=== PATIENT | male | born 1940 | race Two or more races ===

== ENCOUNTER 2017-01-22 11:38 | Inpatient (IN) | payer OTHER, BC ==
[~2017-01-22] VITALS: Ht 160 cm; Wt 68.0 kg
--- NOTE | ~2017-01-22 | HP ---
Unit #: [id number] #: [id number] Patient: RASHAAD DUTTA [id number] [address] [place], [place] [address] [id number] I MR#: [id number] NAME: RASHAAD DUTTA ROOM: [facility] Age: 76 Sex: M Admission Date: 01/22/2017 : 1940 Attending Physician: Hillary Brown M.D. Primary Care Physician: [facility]. HISTORY AND PHYSICAL REASON FOR EVALUATION Pancytopenia, please evaluate. HISTORY OF PRESENT ILLNESS 76-year-old gentleman who states for the last two months he gets short winded very easily, went to the family doctor for evaluation and was found to have a hemoglobin of 4.9 sent over here for admission. On questioning he has no fever, chills, no night sweats, no weight loss. The only thing he felt abnormal was easy fatigability. He has no history of hemoptysis, hematemesis, melena, hematuria, hematochezia or blood loss in the past. PAST HISTORY Mainly remarkable for intracranial bleed but that was 20 years ago and they don't have the records. It was at [facility]. Had a history of hypertension but no blood dyscrasias. FAMILY HISTORY Positive for colon cancer. Negative for blood dyscrasias. SOCIAL HISTORY He quit smoking more than two decades ago. Retired steelworker and very occasional alcohol. No new medications. ALLERGIES No known allergies. CHRONIC MEDICATIONS Zestoretic and vitamin D. REVIEW OF SYSTEMS Mainly remarkable for weakness and shortness of breath on exertion, otherwise 8 or 10 systems are within normal limits. PHYSICAL EXAMINATION GENERAL: He appears very comfortable, lying flat in bed, no palpable nodes. LUNGS: Clear. CARDIOVASCULAR: Distant S1 and S2. ABDOMEN: No organomegaly. [employer]: Grossly intact. RECTAL: Not performed. DIAGNOSTIC STUDIES LABORATORY STUDIES: Glucose 108, BUN 22, creatinine 1, sodium 137, Unit #: [id number] #: [id number] Patient: RASHAAD DUTTA potassium 4.5, chloride 105, CO2 26, calcium 8.6, AST 20, ALT 11, alk phos 47, serum iron of 214, TIBC 243, saturation 88, B12 395, creatinine 15.2, ferritin of 355. Hemoglobin 4.9, hematocrit 15, white count 3700, platelets 63,000. Peripheral smear shows atypical very rare white cells, possible dysplastic. Red blood cell are microcytic with some teardrops. Platelets are decreased in number, large in size. No schistocytes seen. 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 PLAN To proceed with packed RBCs, to bring the hemoglobin around 7-8 and proceed with a bone marrow aspirate biopsy flow cytometry, cytogenetics in the morning. Benefits and risks of this approach explained to the patient. He is in full agreement. Dictated by Regina James/ts TD: 01/23/2017 06:28 JOB #: [id number] HISTORY AND PHYSICAL Page 1 of 1 X Manolo Joiner MD X HISTORY AND PHYSICAL
--- NOTE | ~2017-01-22 | HP ---
Unit #: [id number] #: [id number] Patient: RASHAAD DUTTA [id number] [address] [address] [id number] MR#: [id number] NAME: RASHAAD DUTTA ROOM: Age: 76 Sex: M Admission Date: 01/22/2017 : 1940 Attending Physician: Yaw Marion M.D. [facility] HISTORY AND PHYSICAL CHIEF COMPLAINT Abnormal labs. HISTORY OF PRESENT ILLNESS The patient is a 76-year-old male with a past medical history of hypertension and intracranial hemorrhage who presented to the emergency department for evaluation of the above. Patient states that he was seen by his primary care physician for a routine followup. Labs were done. Today, he was told by the primary care physician to come to the emergency department due to abnormal labs. The patient's hemoglobin was reportedly 4.9. The patient states that he has had a one to two-month history of increasing generalized weakness and fatigue. He states that he has had dyspnea on exertion with activities including walking up stairs. He denies any blood in the stool and no black tarry stool. He has never had endoscopy. He denies any change in his weight, no chest pain, no palpitations, no syncope, and no feelings of lightheadedness. Upon arrival in the emergency department, the patient's pulse and blood pressure were 75 and 120/40, respectively. Hemoglobin is 4.9, platelets are 63,000, and white blood cell count 3.7. Rectal exam was Hemoccult negative per ER documentation. He is being admitted to [facility] for evaluation and further treatment. PAST MEDICAL HISTORY 1. Patient denies recent hospitalizations within the past 10 years. 2. Hospitalized at [facility] 20 years ago for intracranial hemorrhage, status post surgery. 3. Hypertension. PAST SURGICAL HISTORY Surgery for intracranial hemorrhage (no records). SOCIAL HISTORY The patient lives with his family. He quit smoking 20 years ago. 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 FAMILY HISTORY Notable for there being no history of colon cancer in the family. There is no history of heart disease that the patient is aware of. ALLERGIES No known allergies. Unit #: [id number] #: [id number] Patient: RASHAAD DUTTA HOME MEDICATIONS 1. Zestoretic 20/25 daily. 2. Vitamin D 50,000 units weekly. REVIEW OF SYSTEMS A complete review of systems is negative except as indicated in the HPI. PHYSICAL EXAMINATION VITAL SIGNS: Temperature is 98.3, pulse 75, respirations 16, blood pressure 120/40, and oxygen saturation is 100% on room air. GENERAL: Patient is a very pleasant male in no acute distress. He is awake and alert. HEENT: Head is atraumatic. Mucous membranes are moist. NECK: Supple. Trachea is midline. CARDIOVASCULAR: Regular rate and rhythm. He does have a 3/6 systolic ejection murmur. LUNGS: Clear to auscultation bilaterally with no increased work of breathing. ABDOMEN: Soft and nontender with bowel sounds present in all four quadrants. Rectal exam was Hemoccult negative per ER documentation. NEUROLOGIC: Patient is awake and alert. He follows commands. PSYCHIATRIC: Mood and affect are normal. Patient is cooperative. SKIN: Skin of examined areas is warm and dry. DIAGNOSTIC STUDIES LABORATORY: INR is 1.1. Comprehensive metabolic panel is completely normal. Complete blood count notable for white blood cell count of 3.7, hemoglobin 4.9, hematocrit 15, MCV 110.9, RDW is 20.5, and platelets are 63,000. Giant platelets are noted on the slide. ASSESSMENT The patient is a 76-year-old male with: 1. Pancytopenia. There are no baseline labs for comparison. Patient's white blood cell count is 3.7, hemoglobin 4.9, and platelets are 63,000. 2. General weakness. 3. Hypertension. 4. Murmur. 5. History of intracranial hemorrhage, status post surgery. PLAN 1. Admit to ICU. 2. Clear liquid diet for possible endoscopy. 3. Bedrest. 4. Fall precautions. 5. Transfuse two units of packed red blood cells. 6. Hemoglobin and hematocrit one hour after transfusion and q.6 hours. 7. Iron studies, B12, and folate. 8. Reticulocyte count and LDH. 9. Check EKG and cardiac enzymes. 10. A 2D echo for further evaluation of murmur. 11. Consult Dr. Hassan regarding pancytopenia. 12. Repeat labs in the morning. 13. SCDs for DVT prophylaxis. 14. Additional workup and consultants based on above. 1. Unit #: [id number] #: [id number] Patient: RASHAAD DUTTA Dictated by Regina Vargas/larry TD: 01/22/2017 15:09 JOB #: [id number] HISTORY AND PHYSICAL Page 1 of 1 X Hillary Brown MD X HISTORY AND PHYSICAL
--- NOTE | ~2017-01-22 | DS ---
Unit #: [id number] #: [id number] Patient: RASHAAD DUTTA [id number] [address] [address] [id number] I MR#: [id number] NAME: RASHAAD DUTTA ROOM: 226 Age: 76 Sex: M Admission Date: 01/22/2017 : 1940 Discharge Date: 01/24/2017 Attending Physician: Raymundo Ramirez M.D. Primary Care Physician: [facility] Deanna DISCHARGE SUMMARY DISCHARGE DIAGNOSES 1. Pancytopenia. 2. Symptomatic anemia. HOSPITAL COURSE The patient is a 76-year-old male who presented to [facility] emergency department at the behest of his primary care provider after laboratory testing revealed a hemoglobin of 4.9. Apparently, the patient had been increasingly fatigued when he presented to his primary care provider's office and received general lab work. When the patient's hemoglobin returned at 4.9, he was called and asked to go to the emergency department. In addition to a low hemoglobin, the patient was noted to have platelets of 63,000 and a white count of 3.7. The patient received transfusion of packed cells in the emergency department. At this time, he has gone on to receive additional transfusions for a total of 5 units. His weakness has much improved and his hemoglobin is up to 8.6 from 4.9 on presentation. The patient did undergo bone marrow biopsy after having been seen by hematology. The results of this biopsy are pending and the patient should follow up with Dr. Joiner for those results. DISCHARGE MEDICATIONS 1. Zestoretic 20/25 one p.o. daily. 2. Vitamin D2 50,000 units weekly. FOLLOWUP Patient should follow up with Dr. Joiner in 1-2 weeks. Dictated by... Raymundo Ramirez M.D. HERON/elena TD: 01/28/2017 10:56 JOB #: [id number] Unit #: [id number] #: [id number] Patient: RASHAAD DUTTA DISCHARGE SUMMARY Page 1 of 1 X Raymundo Ramirez MD X DISCHARGE SUMMARY
--- NOTE | ~2017-01-22 | HP ---
Unit #: [id number] #: [id number] Patient: RASHAAD DUTTA [id number] [address] [address] [id number] I MR#: [id number] NAME: RASHAAD DUTTA ROOM: 210[address] Age: 76 Sex: M Admission Date: 01/22/2017 : 1940 Attending Physician: Hillary Brown M.D. [facility] HISTORY AND PHYSICAL REVISED REPORT See Addendum CHIEF COMPLAINT Abnormal labs. HISTORY OF PRESENT ILLNESS The patient is a 76-year-old male with a past medical history of hypertension and intracranial hemorrhage who presented to the emergency department for evaluation of the above. Patient states that he was seen by his primary care physician for a routine followup. Labs were done. Today, he was told by the primary care physician to come to the emergency department due to abnormal labs. The patient's hemoglobin was reportedly 4.9. The patient states that he has had a one to two-month history of increasing generalized weakness and fatigue. He states that he has had dyspnea on exertion with activities including walking up stairs. He denies any blood in the stool and no black tarry stool. He has never had endoscopy. He denies any change in his weight, no chest pain, no palpitations, no syncope, and no feelings of lightheadedness. Upon arrival in the emergency department, the patient's pulse and blood pressure were 75 and 120/40, respectively. Hemoglobin is 4.9, platelets are 63,000, and white blood cell count 3.7. Rectal exam was Hemoccult negative per ER documentation. He is being admitted to [facility] for evaluation and further treatment. PAST MEDICAL HISTORY 1. Patient denies recent hospitalizations within the past 10 years. 2. Hospitalized at [facility] 20 years ago for intracranial hemorrhage, status post surgery. 3. Hypertension. PAST SURGICAL HISTORY Surgery for intracranial hemorrhage (no records). SOCIAL HISTORY The patient lives with his family. He quit smoking 20 years ago. 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 FAMILY HISTORY Notable for there being no history of colon cancer in the family. There is no history of heart disease that the patient is aware of. Unit #: [id number] #: [id number] Patient: RASHAAD DUTTA ALLERGIES No known allergies. HOME MEDICATIONS 1. Zestoretic 20/25 daily. 2. Vitamin D 50,000 units weekly. REVIEW OF SYSTEMS A complete review of systems is negative except as indicated in the HPI. PHYSICAL EXAMINATION VITAL SIGNS: Temperature is 98.3, pulse 75, respirations 16, blood pressure 120/40, and oxygen saturation is 100% on room air. GENERAL: Patient is a very pleasant male in no acute distress. He is awake and alert. HEENT: Head is atraumatic. Mucous membranes are moist. NECK: Supple. Trachea is midline. CARDIOVASCULAR: Regular rate and rhythm. He does have a 3/6 systolic ejection murmur. LUNGS: Clear to auscultation bilaterally with no increased work of breathing. ABDOMEN: Soft and nontender with bowel sounds present in all four quadrants. Rectal exam was Hemoccult negative per ER documentation. NEUROLOGIC: Patient is awake and alert. He follows commands. PSYCHIATRIC: Mood and affect are normal. Patient is cooperative. SKIN: Skin of examined areas is warm and dry. DIAGNOSTIC STUDIES LABORATORY: INR is 1.1. Comprehensive metabolic panel is completely normal. Complete blood count notable for white blood cell count of 3.7, hemoglobin 4.9, hematocrit 15, MCV 110.9, RDW is 20.5, and platelets are 63,000. Giant platelets are noted on the slide. ASSESSMENT The patient is a 76-year-old male with: 1. Pancytopenia. There are no baseline labs for comparison. Patient's white blood cell count is 3.7, hemoglobin 4.9, and platelets are 63,000. 2. General weakness. 3. Hypertension. 4. Murmur. 5. History of intracranial hemorrhage, status post surgery. PLAN 1. Admit to ICU. 2. Clear liquid diet for possible endoscopy. 3. Bedrest. 4. Fall precautions. 5. Transfuse two units of packed red blood cells. 6. Hemoglobin and hematocrit one hour after transfusion and q.6 hours. 7. Iron studies, B12, and folate. 8. Reticulocyte count and LDH. 9. Check EKG and cardiac enzymes. 10. A 2D echo for further evaluation of murmur. 11. Consult Dr. Hassan regarding pancytopenia. 12. Repeat labs in the morning. 13. SCDs for DVT prophylaxis. Unit #: [id number] #: [id number] Patient: RASHAAD DUTTA 14. Additional workup and consultants based on above. Dictated by Regina Vargas/larry TD: 01/22/2017 15:09 ADDENDUM Thirty-three (33) minutes critical care time spent in the care of this patient (2:05-2:38 p.m.). Dictated by Regina Vargas TD: 01/22/2017 15:28 JOB #: [id number] CC: Jaspal/valentinision Please Delete HISTORY AND PHYSICAL Page 1 of 1 X Hillary Brown MD HISTORY AND PHYSICAL
--- NOTE | ~2017-01-22 | XA51 ---
[facility] A Service of [facility] RADIOLOGY TEXT RESULTS PATIENT: RASHAAD DUTTA LOCATION: [facility] : 40 UNIT #: [id number] AGE: [address]: Raymundo Ramirez MD SEX: M ORDER DR: [id number] [place] [id number] [facility]. [place], [place] [address] [id number] I MR#: [id number] Acc #: [id number] NAME: RASHAAD DUTTA : 1940 SEX: M STUDY DATE/TIME: 01/23/2017 12:41 UNIT: [facility] ROOM: [facility] STUDY DESCRIPTION: XA BX Bone Marrow Attending Physician: Raymundo Ramirez M.D. Ordering Physician: Manolo Joiner M.D. Primary Care Physician: [facility] IMAGING REPORT This report is preliminary unless electronic signature is present EXAM Fluoroscopically guided bone marrow aspiration biopsy 01/23/2017 HISTORY Thrombocytopenia PROCEDURE Informed consent was obtained from the patient. Fentanyl and Versed were used for IV conscious sedation with hemodynamic monitoring provided by the nursing staff throughout the procedure. Total sedation time 30 minutes. Skin site was selected with fluoroscopic guidance and sterilely prepped and draped and locally anesthetized. A total of 0.6 minutes of fluoroscopy was utilized and two spot images obtained. After cutaneous and periosteal anesthesia a Jamshidi needle was used to obtain a core specimen and aspirate from the right posterior ileum. There are no complications and the patient tolerated procedure well. IMPRESSION Successful fluoroscopically guided bone marrow aspiration core biopsy from right posterior ilium with conscious sedation as above. Dictated by... Hola Leblanc M.D. THIS IS AN ELECTRONICALLY VERIFIED REPORT Hola Leblanc M.D. at 01/25/2017 4:02 PM TEV/rnr TD: 01/23/2017 16:31 [facility] A Service of [facility] RADIOLOGY TEXT RESULTS PATIENT: RASHAAD DUTTA LOCATION: [facility] : 40 UNIT #: [id number] AGE: [address]: Raymundo Ramirez MD SEX: M ORDER DR: JOB #: [id number] MEDICAL IMAGING REPORT Page 1 of 1 COPY
--- NOTE | ~2017-01-22 | EKG ---
PATIENT: RASHAAD DUTTA UNIT #: [id number] Ventricular Rate: 67 BPM Atrial Rate: 67 BPM P-R Interval: 196 ms QRS Duration: 86 ms Q-T Interval: 392 ms QTC Calculation(Bezet): 414 ms P Beggs: 25 degrees Calculated R Beggs: 29 degrees Calculated T Beggs: 18 degrees Diagnosis Line: Normal sinus rhythm Diagnosis Line: Normal ECG Diagnosis Line: No previous ECGs available Diagnosis Line: Confirmed by HARJINDER MONIQUE MD ([id number]) on 01/23/2017 Diagnosis Line: 7:16:05 PM INTERPRETING MD: KAYDEN OLIVER
[~2017-01-22 11:38] MED LIST: .
[2017-01-22 12:25] LABS: BASOPHIL% 1.2 % (0-2.5); EOSINOPHIL# 0.4 X10e3 (0-0.7); EOSINOPHIL% 11.6 % (0.0-7.0); LYMPHOCYTE% 26.6 % (17.0-45.0); MEAN CELL VOLUME 110.9 FL (83-96); MEAN CORPUSCULAR HEMOGLOBIN 36.2 PG (28-34); MEAN CORPUSCULAR HGB CONC 32.6 g/dL (30-36); MEAN PLATELET VOLUME 11.9 FL (6.5-11.5); MONOCYTE# 0.5 X10e3 (0-1.0); MONOCYTE% 14.9 % (3.0-12.0); NEUTROPHIL# 1.7 X10e3 (1.5-7.1); NEUTROPHIL% 45.7 % (40-75); RED BLOOD COUNT 1.35 X10e (3.90-5.60); RED CELL DISTRIBUTION WIDTH 20.5 % (11.0-15.5); WHITE BLOOD COUNT 3.7 X10e3 (4.0-10.5)
[2017-01-22 12:30] LABS: INR 1.1; PROTHROMBIN TIME (PATIENT) 12.1 SECONDS (10.0-11.7)
[2017-01-22] MEDS ORDERED: PATIENT'S PHARMACY (13:56)
[2017-01-22] MEDS ORDERED: ZESTORETIC 20-1 EAC2 PO (13:56)
[2017-01-22] MEDS ORDERED: VITAMIN D250000 UNIT PO (13:56)
[2017-01-22 14:01] LABS: HEMOGLOBIN 4.9 gm/dL (13.0-16.0); PLATELET COUNT 63 X10e3 (140-420)
[2017-01-22 14:02] LABS: DIFF IND YES
[2017-01-22 14:07] LABS: ALBUMIN SERUM 4.3 g/dL (3.5-5.0); BILIRUBIN,TOTAL 1.4 mg/dL (0.2-2.0); CALCIUM SERUM 8.6 mg/dL (8.4-10.2); GLOM FILT RATE Estimated 72.8 mL/min (>60); POTASSIUM 4.5 mmol/L (3.5-5.1); PROTEIN TOTAL SERUM 6.9 g/dL (6.0-8.3)
[2017-01-22 14:13] LABS: PLATELET ESTIMATE DECREASED (NORMAL); POIKILOCYTOSIS SL; POLYCHROMASIA SL
[2017-01-22 14:14] LABS: HYPOCHROMIA SL; MICROCYTOSIS MOD
[2017-01-22 15:54] LABS: IRON SERUM 214 ug/dL (45-182); LACTIC ACID DEHYDROGENASE 155 U/L (91-180); TOTAL IRON BINDING CAPACITY 243 ug/dL (252-460); TRANSFERRIN 174 mg/dL (180-329); TRANSFERRIN SATURATION 88 % (20-50)
[2017-01-22 15:56] LABS: FOLATE (FOLIC ACID) 15.2 ng/mL (>5.8)
[2017-01-22 16:05] LABS: CK TOTAL 46 IU/L (36-174)
[2017-01-22 22:27] LABS: HEMATOCRIT 22.4 % (38.0-50.0)
[2017-01-22 22:29] LABS: HEMOGLOBIN 7.3 gm/dL (13.0-16.0)
[2017-01-22 22:32] LABS: CK TOTAL 38 IU/L (36-174)
[2017-01-23 03:28] LABS: BASOPHIL% 0.9 % (0-2.5); EOSINOPHIL# 0.4 X10e3 (0-0.7); HEMATOCRIT 21.1 % (38.0-50.0); HEMOGLOBIN 7.2 gm/dL (13.0-16.0); LYMPHOCYTE# 1.1 X10e3 (1.0-3.5); MEAN CORPUSCULAR HEMOGLOBIN 33.9 PG (28-34); MEAN CORPUSCULAR HGB CONC 33.9 g/dL (30-36); MONOCYTE# 0.6 X10e3 (0-1.0); MONOCYTE% 14.9 % (3.0-12.0); NEUTROPHIL# 1.9 X10e3 (1.5-7.1); NEUTROPHIL% 46.2 % (40-75); RED BLOOD COUNT 2.11 X10e (3.90-5.60); RED CELL DISTRIBUTION WIDTH 25.1 % (11.0-15.5)
[2017-01-23 03:33] LABS: MEAN CELL VOLUME 99.9 FL (83-96)
[2017-01-23 03:34] LABS: PLATELET COUNT 49 X10e3 (140-420)
[2017-01-23 03:35] LABS: DIFF IND NO
[2017-01-23 03:39] LABS: CK TOTAL 36 IU/L (36-174)
[2017-01-23 03:49] LABS: INR 1.1; PARTIAL THROMBOPLASTIN TIME 32.9 SECONDS (23.5-31.3); PROTHROMBIN TIME (PATIENT) 12.4 SECONDS (10.0-11.7)
[2017-01-23 03:55] LABS: ALBUMIN SERUM 3.7 g/dL (3.5-5.0); BILIRUBIN,TOTAL 2.4 mg/dL (0.2-2.0); BUN/CREATININE RATIO 21.25; CALCIUM SERUM 8.2 mg/dL (8.4-10.2); CREATININE SERUM 0.8 mg/dL (0.6-1.4); GLOM FILT RATE Estimated 86.8 mL/min (>60); POTASSIUM 4.2 mmol/L (3.5-5.1); PROTEIN TOTAL SERUM 5.9 g/dL (6.0-8.3)
[2017-01-23 09:35] LABS: HEMATOCRIT 21.3 % (38.0-50.0); HEMOGLOBIN 7.2 gm/dL (13.0-16.0)
[2017-01-24 06:03] LABS: HEMATOCRIT 20.6 % (38.0-50.0); MEAN CELL VOLUME 99.8 FL (83-96); MEAN CORPUSCULAR HEMOGLOBIN 33.5 PG (28-34); MEAN CORPUSCULAR HGB CONC 33.6 g/dL (30-36); MEAN PLATELET VOLUME 12.2 FL (6.5-11.5); RED BLOOD COUNT 2.07 X10e (3.90-5.60); RED CELL DISTRIBUTION WIDTH 24.8 % (11.0-15.5); WHITE BLOOD COUNT 3.7 X10e3 (4.0-10.5)
[2017-01-24 06:35] LABS: HEMOGLOBIN 6.9 gm/dL (13.0-16.0)
[2017-01-24 06:39] LABS: CALCIUM SERUM 8.3 mg/dL (8.4-10.2); CREATININE SERUM 0.7 mg/dL (0.6-1.4); GLOM FILT RATE Estimated 91.7 mL/min (>60)
[2017-01-24 14:17] LABS: HEMATOCRIT 24.9 % (38.0-50.0); HEMOGLOBIN 8.6 gm/dL (13.0-16.0); MEAN CORPUSCULAR HEMOGLOBIN 33.4 PG (28-34); MEAN CORPUSCULAR HGB CONC 34.5 g/dL (30-36); MEAN PLATELET VOLUME 11.3 FL (6.5-11.5); RED BLOOD COUNT 2.56 X10e (3.90-5.60); RED CELL DISTRIBUTION WIDTH 23.1 % (11.0-15.5); WHITE BLOOD COUNT 4.3 X10e3 (4.0-10.5)
== END 2017-01-24 17:45 | disposition home or self-care (01) | DRG 810 ==
LOC: CED 11:38 → CEDOF 14:40 → CICCU2 14:40 → CED 15:23 → CEDOF 15:23 → CICCU2 15:44 → CEDOF 15:44 → CICCU2 01-23 07:32 → C2A 01-23 16:12
PROVIDERS: Emergency Medicine; Family Medicine; Internal Medicine; Internal Medicine Medical Oncology; Radiology Diagnostic Radiology
PROC: 07DR3ZX Extraction of Iliac Bone Marrow, Percutaneous Approach, Diagnostic (ICD-10-PCS; principal; 2017-01-22)
PROC: 30233N1 Transfusion of Nonautologous Red Blood Cells into Peripheral Vein, Percutaneous Approach (ICD-10-PCS; 2017-01-22)
DX: D61.818 Other pancytopenia (principal); D64.9 Anemia, unspecified; I10 Essential (primary) hypertension; Z87.891 Personal history of nicotine dependence; Z80.0 Family history of malignant neoplasm of digestive organs
CPT/HCPCS: 36415; 36430; 77002; 80048; 80053; 82550; 82607; 82728; 82746; 82947; 83540; 83550; 83615; 84484; 85014; 85018; 85025; 85027; 85044; 85610; 85730; 86850; 86900; 86901; 86923; 88305; 88311; 93005; 93306; 99152; 99153; 99284; J1940; J2250; J3010; P9016